=== PATIENT | male | born 1950 | race Caucasian/White ===

== ENCOUNTER 2023-09-27 21:02 | Emergency (ER) | payer SELFPAY ==
[2023-09-27 21:31] VITALS: BP 134/68; O2SAT 94
[2023-09-27 22:04] LABS: BASOPHILS % (AUTO) 0.4 %; EOSINOPHILS % (AUTO) 0.1 %; HCT - HEMATOCRIT 40.1 % (42.0-52.0); HGB - HEMOGLOBIN 13.5 g/dL (14.0-18.0); LYMPHOCYTES % (AUTO) 24.8 %; MEAN CORPUSCULAR HEMOGLOBIN 30.4 pg (27.0-31.0); MEAN CORPUSCULAR HGB CONC 33.7 g/dL (32.0-36.0); MEAN CORPUSCULAR VOLUME 90.3 fL (80.0-94.0); MEAN PLATELET VOLUME 12.8 fL (7.4-11.4); MONOCYTES % (AUTO) 10.2 %; NEUTROPHILS % (AUTO) 64.2 %; PLT - PLATELET COUNT 272 10^3/uL (130-450); RED BLOOD COUNT 4.44 10^6/uL (4.70-6.10); RED CELL DISTRIBUTION WIDTH 14.6 % (12.0-15.0); WHITE BLOOD COUNT 11.4 x10^3/uL (4.8-10.8)
[2023-09-27] MEDS: HYDROmorphone 1 MG/ML CARPUJECT IVP STA (22:06)
[2023-09-27] MEDS: PIPERACILLIN/TAZOBACTAM 4.5 GM in SODIUM CHLORIDE 0.9% MINIBAG 100 ML IV STA (22:06)
[2023-09-27 22:09] LABS: ABNORMAL LYMPHS % (MANUAL) 0 %
[2023-09-27 22:18] LABS: ALBUMIN/GLOBULIN RATIO 1.1 (1.0-2.2); BILIRUBIN,TOTAL 0.4 mg/dL (0.2-1.0); CALCIUM 9.2 mg/dL (8.5-10.3); CREATININE 0.8 mg/dL (0.6-1.3); TOTAL PROTEIN 7.5 g/dL (6.4-8.9)
[2023-09-27 22:36] LABS: BAND NEUTROPHILS % (MANUAL) 6 %; DIFFERENTIAL COMMENT MANUAL DIFFERENTIAL; EOSINOPHILS # (MANUAL) 0.2 10^3/uL (0-0.7); LYMPHOCYTES # (MANUAL) 2.2 10^3/uL (1.5-3.5); LYMPHOCYTES % (MANUAL) 15 %; MONOCYTES # (MANUAL) 0.8 10^3/uL (0.0-1.0); NEUTROPHILS # (MANUAL) 8.2 10^3/uL (1.5-6.6); PLATELET ESTIMATE, MANUAL NORMAL (130-450,000) (NORMAL); PLATELET MORPHOLOGY NORMAL APPEARANCE (NORMAL); RBC MORPHOLOGY (MULTIPLE) NORMAL APPEARANCE (NORMAL); REACTIVE LYMPHS % (MANUAL) 4 %
--- NOTE | 2023-09-27 22:47 | ED Physician Documentation ---
History of Present Illness - Stated complaint Stated Complaint: LT LEG INJ - Chief complaint Chief Complaint: Trauma Ext - History obtained from History obtained from: Patient - History of Present Illness Timing: How many weeks ago (1) Pain level max: 8 Pain level now: 8 - Additonal information Additional information: Patient is a 73-year-old male who scraped his left feldman on a boat at [place], approximately a week ago. Had x-rays done at a clinic which were negative. Started on cefadroxil and bacitracin. He has had increasing swelling and redness to the leg. Worse with walking, better with rest. Patient is visiting from [place]. He is not diabetic. Tetanus up-to-date. Review of Systems Constitutional: denies: Fever, Chills Cardiac: denies: Chest pain / pressure, Palpitations Respiratory: denies: Dyspnea, Cough GI: denies: Vomiting, Diarrhea PD PAST MEDICAL HISTORY - Past Medical History Past Medical History: Yes Cardiovascular: None Respiratory: None Neuro: None Endocrine/Autoimmune: None GI: None : None HEENT: None Psych: None Musculoskeletal: None Derm: Other Other Past Medical History: shingles - Past Surgical History Past Surgical History: Yes - Present Medications Home Medications: Ambulatory Orders Medication Instructions Recorded Confirmed Doxycycline [Vibramycin] 100 mg PO BID #20 tablet 09/27/23 HYDROcod/ACETAM 5/325 [Mayflower 5/325] 1 - 2 ea PO Q6H PRN #14 tablet 09/27/23 - Allergies Allergies/Adverse Reactions: Allergies Allergy/AdvReac Type Severity Reaction Status Date / Time No Known Drug Allergies Allergy Verified 09/27/23 21:25 - Social History Does the pt smoke?: Yes Smoking Status: Current every day smoker PD ED PE NORMAL - Vitals Vital signs reviewed: Yes - General General: Alert and oriented X 3, No acute distress - HEENT HEENT: Moist mucous membranes - Neck Neck: Supple, no meningeal sign - Cardiac Cardiac: RRR, Strong equal pulses - Respiratory Respiratory: No respiratory distress, Clear bilaterally - Derm Derm: Warm and dry - Extremities Extremities: Other (There is an abrasion to the anterior proximal aspect of the left feldman. There is a fluctuant area near the top of the abrasion. There is mild erythema as well.) - Neuro Neuro: Alert and oriented X 3 - Psych Psych: Normal mood, Normal affect Results - Vitals Vitals: Vital Signs - 24 hr 09/27/23 21:18 Temperature 37.3 C Heart Rate 85 Respiratory 18 Rate Blood Pressure 134/68 H O2 Saturation 94 Oxygen O2 Source Room air - Labs Labs: Laboratory Tests 09/27/23 09/27/23 21:55 21:55 WBC 11.4 H RBC 4.44 L Hgb 13.5 L Hct 40.1 L MCV 90.3 MCH 30.4 MCHC 33.7 RDW 14.6 Plt Count 272 MPV 12.8 H Neut # (Auto) Not Reportable Lymph # (Auto) Not Reportable Real # (Auto) Not Reportable Eos # (Auto) Not Reportable Baso # (Auto) Not Reportable Absolute Nucleated RBC Not Reportable Total Counted 100 Band Neuts % (Manual) 6 Reactive Lymphs % (Man) 4 Abnorm Lymph % (Manual) 0 Nucleated RBC % Not Reportable Neutrophils # (Manual) 8.2 H Lymphocytes # (Manual) 2.2 Monocytes # (Manual) 0.8 Eosinophils # (Manual) 0.2 Basophils # (Manual) 0.0 Differential Comment MANUAL DIFFERENTIAL Platelet Estimate NORMAL (130-450,000) Platelet Morphology NORMAL APPEARANCE RBC Morph Micro Appear NORMAL APPEARANCE Sodium 138 Potassium 4.0 Chloride 104 Carbon Dioxide 27 Anion Gap 7.0 BUN 14 Creatinine 0.8 Estimated GFR (MDRD) 94 Glucose 95 Calcium 9.2 Total Bilirubin 0.4 AST 22 ALT 18 Alkaline Phosphatase 96 Total Protein 7.5 Albumin 4.0 Globulin 3.5 Albumin/Globulin Ratio 1.1 Lipase 27 Procedures - General procedure General procedure: Hematoma evacuation - Verbal consent obtained. The left proximal lower leg was cleansed with alcohol. 1% lidocaine was used to anesthetize the area. A approximately 1.5 cm incision was made over the fluctuant area. A large amount of hematoma and clot was evacuated. Patient tolerated well. No complications. Dressing applied. PD Medical Decision Making - ED course Complexity details: reviewed results, re-evaluated patient, considered differential, d/w patient, d/w family ED course: 73-year-old male with what appears to be a cellulitis of the left lower extremity complicated by a hematoma of the proximal left lower leg. This was evacuated. Tolerated well. Has had x-rays within the last week, no indication for repeat x-ray today. We will add doxycycline to his antibiotic regimen. No fevers. No chills. No evidence of sepsis. We will have him return in approximately 2 to 3 days either here, the walk-in clinic or another local clinic for repeat evaluation. Will prescribe pain medication for home as well. Patient declines any crutches or a walker. Patient counseled regarding signs and symptoms for which I believe and urgent re-evaluation would be necessary. Patient with good understanding of and agreement to plan and is comfortable going home at this time This document was made in part using voice recognition software. While efforts are made to proofread this document, sound alike and grammatical errors may occur. Patient was given a dose of IV Dilaudid and IV Zosyn here. Departure - Departure Disposition: Home, Self Care Clinical Impression: Hematoma Cellulitis Qualifiers: Site of cellulitis: extremity Site of cellulitis of extremity: lower extremity Laterality: left Qualified Code(s): L03.116 - Cellulitis of left lower limb Condition: Good Instructions: ED Infec Skin Cellulitis, ED Hematoma Follow-Up: your,doctor in 2-3 days [Other] Prescriptions: HYDROcod/ACETAM 5/325 [Mayflower 5/325] 1 - 2 ea PO Q6H PRN #14 tablet PRN Reason: Pain Doxycycline [Vibramycin] 100 mg PO BID #20 tablet Comments: You had a large hematoma that was drained from your leg. We will change your antibiotics to ensure better coverage of the organisms that may be causing the infection. You can take the prescription with you to the pharmacy tomorrow to get filled. Please continue the remainder of the antibiotics you are currently taking as well. The wound needs to be reevaluated in about 48 hours[place] for repeat evaluation. I am prescribing a short course of narcotic pain medication for you. These are potentially dangerous and addictive medications that should be used carefully. These medications may constipate you. Take an [id number] stool softener (docusate) twice daily with plenty of water while taking these medications. If you go 24 hours without a bowel movement, take [id number] miralax, per package instructions. Do not drink or drive while taking these medications. If you received narcotic or sedating medications while in the emergency department, do not drive for 24 hours. Store this medication in a safe, secure place and out of reach of children. It is a violation of federal law to give or sell this medication to another person or to use in a manner other than prescribed. The ED will not refill narcotic prescriptions, including prescriptions lost or stolen. To dispose of unwanted medications: 1. [facility] at [address] in [place] has a medication drop box. They accept prescription medications (in pill form) Wednesday through Wednesday 9:00 a.m. to 5:00 p.m. 2. The [facility] accepts prescription medications (in pill form only) for disposal year round. Call for more information. 3. Contact the [facility] for the next [employer] sponsored prescription drug collection event. , [phone], or [phone]; Forms: PCP List Discharge Date/Time: 09/27/23 23:04
== END 2023-09-27 23:04 | disposition home or self-care (01) ==
LOC: ED 21:02
DX: L03.116 Cellulitis of left lower limb (principal); S80.812A Abrasion, left lower leg, initial encounter; S80.12XA Contusion of left lower leg, initial encounter; W22.09XA Striking against other stationary object, initial encounter; Y92.89 Other specified places as the place of occurrence of the external cause; F17.200 Nicotine dependence, unspecified, uncomplicated
CPT/HCPCS: 10060; 36415; 80053; 83690; 85025; 96374; 96375; 99283; 99284; J1170; 87070; 87205